=== PATIENT | female | born 1995 | race Caucasian/White ===

== ENCOUNTER → 2020-03-12 09:00 | Outpatient (BNVA) | payer BC, OTHER, MEDICAID, SELFPAY | PROVIDERS: Family Provider Family Medicine; PCP Nurse Practitioner; Visit Provider Nurse Practitioner Women's Health | DX: O99.331 Smoking (tobacco) complicating pregnancy, first trimester (principal); O36.80X0 Pregnancy with inconclusive fetal viability, not applicable or unspecified | CPT/HCPCS: 84315; 84702 ==

== ENCOUNTER → 2020-04-14 08:42 | Outpatient (BNVA) | payer OTHER, MEDICAID, SELFPAY | PROVIDERS: Family Provider Family Medicine; PCP Nurse Practitioner; Visit Provider Obstetrics & Gynecology | DX: O21.9 Vomiting of pregnancy, unspecified (principal); Z12.4 Encounter for screening for malignant neoplasm of cervix; Z3A.11 11 weeks gestation of pregnancy | CPT/HCPCS: 80307; 84315; 85025; 86592; 86762; 86803; 86850; 86900; 87086; 87340; 87806; 88175 ==

== ENCOUNTER → 2020-05-11 11:19 | Outpatient (BNVA) | payer OTHER, MEDICAID, SELFPAY | PROVIDERS: Family Provider Family Medicine; PCP Nurse Practitioner; Visit Provider Obstetrics & Gynecology | DX: Z34.01 Encounter for supervision of normal first pregnancy, first trimester (principal); R87.612 Low grade squamous intraepithelial lesion on cytologic smear of cervix (LGSIL) | CPT/HCPCS: 81000; 87491; 87591 ==

== ENCOUNTER 2020-07-01 20:08 | Outpatient (CLI) | payer OTHER, MEDICAID, SELFPAY ==
[2020-07-01 20:22] VITALS: BP 137/77; PULSE 116; TEMP 36.6
[2020-07-01 20:29] VITALS: BP 145/80; PULSE 133
[2020-07-01 20:30] VITALS: BP 143/72; PULSE 129
[2020-07-01 20:39] VITALS: BMI 26.2
[2020-07-01 20:45] VITALS: BP 124/71; PULSE 108
[2020-07-01 20:54] VITALS: RESP 16
== END 2020-07-01 20:54 | disposition home or self-care (01) ==
LOC: OPOB 20:09 → OBGYN 20:11
PROVIDERS: Family Provider Family Medicine; PCP Nurse Practitioner; Visit Provider Obstetrics & Gynecology
DX: O36.8190 Decreased fetal movements, unspecified trimester, not applicable or unspecified (principal); Z3A.00 Weeks of gestation of pregnancy not specified
CPT/HCPCS: 99211

== ENCOUNTER → 2020-08-12 15:56 | Outpatient (BNVA) | payer OTHER, MEDICAID, SELFPAY | PROVIDERS: Family Provider Family Medicine; PCP Nurse Practitioner; Visit Provider Obstetrics & Gynecology | DX: Z34.01 Encounter for supervision of normal first pregnancy, first trimester (principal); F12.90 Cannabis use, unspecified, uncomplicated | CPT/HCPCS: 81000; 82950; 85025 ==

== ENCOUNTER → 2020-08-17 10:22 | Outpatient (BNVA) | payer OTHER, MEDICAID, SELFPAY | PROVIDERS: Family Provider Family Medicine; PCP Nurse Practitioner; Visit Provider Obstetrics & Gynecology | DX: D64.9 Anemia, unspecified (principal) | CPT/HCPCS: 82728; 82746; 83021; 83540; 83550 ==

== ENCOUNTER → 2020-09-09 07:48 | Outpatient (BNVA) | payer OTHER, MEDICAID, SELFPAY | PROVIDERS: Family Provider Family Medicine; PCP Nurse Practitioner; Visit Provider Obstetrics & Gynecology | DX: Z34.80 Encounter for supervision of other normal pregnancy, unspecified trimester (principal) | CPT/HCPCS: 81000; 85027 ==

== ENCOUNTER 2020-10-06 01:29 | Inpatient (IN) | payer OTHER, MEDICAID, SELFPAY ==
[2020-10-06] VITALS (216 sets, daily range): BP systolic 91–161; BP diastolic 47–98; PULSE 71–169; RESP 16–18; TEMP 36.4–37.6; O2SAT 92–100; BMI 26.6
[2020-10-06] MEDS: lactated ringers 1,000 ML 999 ML IV ×2 (02:19→04:00)
[2020-10-06] MEDS: ampicillin 2,000 MG in sodium chloride 0.9% (plus) 50 ML 100 MG IV (02:20)
[2020-10-06 02:34] LABS: Basophils % 0.3 %; Eosinophils # 0.2 10^3/uL (0.0-0.8); Eosinophils % 1.9 %; Hematocrit 34.8 % (37.0-47.0); Hemoglobin 11.7 g/dL (11.5-15.3); Lymphocytes # 2.7 10^3/uL (0.8-4.8); Lymphocytes % 20.7 %; Mean Corpuscular HGB Conc 33.6 g/dL (30.0-36.0); Mean Corpuscular Hemoglobin 29.2 pg (28.0-34.0); Mean Corpuscular Volume 86.8 fl (81-99); Mean Platelet Volume 10.2 fL (7.4-10.4); Neutrophils # 8.74 10^3/uL (1.8-7.7); Neutrophils % 67.6 %; Nucleated Red Blood Cells % 0 %; Platelet Count 261 10^3/cmm (130-400); Red Blood Count 4.01 10^6/uL (4.1-5.3); Red Cell Distribution Width 13.2 % (12.1-15.1); White Blood Count 12.9 10^3/uL (4.0-10.0)
[2020-10-06 03:07] LABS: Amphetamines Screen Urine Negative (Negative); Barbiturates Screen Urine Negative (Negative); Benzodiazepines Screen Urine Negative (Negative); Cocaine Screen Urine Negative (Negative); Opiate Screen Urine Negative (Negative); PCP Screen Urine Negative (Negative); THC Screen Urine Positive (Negative)
--- NOTE | 2020-10-06 03:23 | P.ANESASSM_ITS ---
Pre-Anesthetic Assessment Pre-Anesthetic Assessment: Height/Weight: Height 1.57 m Weight 66.224 kg Temp Pulse Resp BP Pulse Ox 97.5 F L 83 18 118/82 99 10/06/20 02:27 10/06/20 03:07 10/06/20 01:48 10/06/20 03:07 10/06/20 01:44 Preop Diagnosis: labor pain Proposed Procedure: epidural Was Beta Laya taken within 24 hours: N/A Was Clonidine taken within 24 hours: N/A Social: Social History: Tobacco and No alcohol Exam: Pre-Anes Outpt Exam: alert, oriented x 3, clear to auscultation bilaterally and regular rate & rhythm Airway: Submandibular: WNL Cervical ROM: WNL MP: 2 Dentition: Full Pulmonary: Pulmonary: None reported CV/HEM: CV/HEM: Anemia : : None reported Hepatic: Hepatic: None reported GI: GI: GERD Metabolic: Metabolic: None reported Musc/skel: Musc/skel: None reported Neuropsych: Neuropsych: None reported Anesthetic Plan: ASA status: 2 Anesthesia: Regional (specify below) Risk of > 500 ml blood loss (7ml/kg in children): No Other Pertinent Information: Marijuana use Meds/Allergies Current Medications: Current Medications Generic Name Dose Route Start Last Admin Trade Name Freq PRN Reason Stop Dose Admin Lactated Ringer's 1,000 mls @ 999 m ls/hr 10/06/20 02:18 10/06/20 02:19 Lactated Ringers IV 999 mls/hr .Q1H1M PRN Administration See label comment s PFSH Anesthesia PFSH: Medical History Irregular menses No pertinent past medical history neghx: htn,dm,thyroid,dvt/pe,herpes ----denies partner with herpes PCP: [facility]-- Surgical History Hx of tonsillectomy (~03/2011) Family History Sister Ovarian cancer dx age 28 Grandmother Thyroid disease Paternal Denies family history of Colon cancer Diabetes Heart disease Hypercholesteremia Breast cancer Hypertension Uterine cancer Stroke Female Reproductive History: : 1 Data Anesthesia CBC & Chem 7: 10/06/20 02:00 Other Labs: Laboratory Results - last 48 hr 10/06/20 10/06/20 02:00 02:25 WBC 12.9 H RBC 4.01 L Hgb 11.7 Hct 34.8 L MCV 86.8 MCH 29.2 MCHC 33.6 RDW 13.2 Plt Count 261 MPV 10.2 Neut % (Auto) 67.6 Lymph % (Auto) 20.7 [place] % (Auto) 8.0 Eos % (Auto) 1.9 Baso % (Auto) 0.3 Neut # (Auto) 8.74 H Lymph # (Auto) 2.7 [place] # (Auto) 1.0 H Eos # (Auto) 0.2 Baso # (Auto) 0.0 Nucleated RBC % (auto) 0 Nucleated RBCs # 0.0 Urine Opiates Screen Negative Ur Barbiturates Screen Negative Ur Phencyclidine Scrn Negative Ur Amphetamines Screen Negative U Benzodiazepines Scrn Negative Urine Cocaine Screen Negative U Marijuana (THC) Screen Positive H Cardiac Studies: No Data to Display
--- NOTE | 2020-10-06 03:53 | ANES.PROC ---
Anesthesia Procedures Procedure/Date: 10/06/20 epidural Procedure Narrative: epidural complete, bolus given, epidural pump initiated with MEDICAL HOUSEKEEPER education given, vitals taken during procedure using OBIX system and satisfactory throughout, patient admits to decrease pain, report of procedure to OB RN Epidural: Time Out Performed: Yes Consents Signed: Procedure Consent Consent: requested by attending/covering physician, from patient, risks and benefits reviewed and patient agrees to proceed Lumbar Level: L3-L4 Epidural position: sitting Epidural procedure: sterile prep of area, 1% lidocaine to numb the area (3 mL), 18 g needle, negative for paresthesia passed, neg for paresthesia, test dose given, 1.5% xylocaine 1:200k epi (5 mL), 0.2% Ropivacaine bolus ml (5 mL), placed PCEA, no systemic response, sterile dressing applied, L.U.D. no apparent complications and 0.2% Ropiavacaine @ mls/hr (13 mL/hr)
--- NOTE | 2020-10-06 04:05 | PM.OPHPUD ---
Labor & Delivery H&P Update Date of Procedure: October 06, 2020 Date H&P Performed: 09/23/20 H&P update information: I have reviewed H&P completed within last 30 days, I have examined patient prior to procedure and Changes to prior documentation as noted here Changes to previous documentation: /2, grossly ruptured membranes Admission Diagnosis: iup at 36 3/7 PPROM Preop diagnosis: labor pain
[2020-10-06] MEDS: dextrose 5%-lactated ringers 1,000 ML 125 ML IV ×2 (06:00→14:02)
[2020-10-06] MEDS: ampicillin 1,000 MG in sodium chloride 0.9% (plus) 50 ML 100 MG IV ×4 (06:23→18:25)
[2020-10-06] MEDS: oxytocin 30 UNIT/500 ML BAG IV (08:45)
--- NOTE | 2020-10-06 20:47 | PM.DELIVERY ---
Delivery Note: Date of delivery: October 06, 2020 Pre-delivery diagnoses: Term Post-delivery diagnoses: Term delivered Procedure: Spontaneous vaginal delivery Op report anesthesia: Epidural and Nerve Block (Pudendal block) Delivering Physician: Home Real MD Estimated blood loss (mL): 300 Delivery: The patient was noted to be complete and pushing, so was placed in the dorsal lithotomy position, prepped and draped in the usual sterile fashion for a vaginal delivery. Pt. Noted to have epidural anesthesia. The patient delivered a viable term male infant weighing 3310 g with scores of 8 and 9 at one and five minutes, respectively. The vertex was delivered spontaneously over an intact perineum. The patient was asked to push and the head delivered spontaneously in the MARTY position, over an intact perineum. A nuchal cord was checked and none noted. The anterior shoulder delivered easily and the posterior shoulder followed. The remainder of the was easily delivered and the oropharynx and nasopharynx was bulb suctioned. The infant was noted to have spontaneous cry and spontaneous movement of all four extremities. The cord was clamped x 2 and cut and noted to have 2 arteries and one vein. The was passed to the mother's abdomen where nursing personnel were in attendance. Cord blood sample was then obtained. The placenta delivered intact spontaneously and the uterus was explored. 20 units of Pitocin was placed in the IV bag to firm the uterus. Examination of the cervix and vaginal vault did not reveal any lacerations. A vaginal pack was then placed. Examination of the perineum showed no lacerations. The vaginal pack was then removed. The patient tolerated this procedure well, and recovered in L&D with her infant in their LDR room. All sponge and needle counts were correct. Post-Delivery Status: Good and stable Coding Level of Care Code Acute Recreation Facility Attendant for Chg Elza
[2020-10-06] MEDS: lidocaine 2% INJ 20 mL INJECTION (22:48)
[2020-10-06] MEDS: ibuprofen 800 mg tablet PO (22:53)
[2020-10-07] VITALS (13 sets, daily range): BP systolic 99–129; BP diastolic 55–81; PULSE 8–90; RESP 16–18; TEMP 35.8–36.8; O2SAT 82–99
[2020-10-07] MEDS: docusate sodium 100 mg Capsule PO (08:31)
[2020-10-07] MEDS: ibuprofen 800 mg tablet PO ×3 (08:32→21:46)
[2020-10-07] MEDS: prenatal vitamin Capsule 1 CAP PO (08:32)
[2020-10-07 09:04] LABS: Hematocrit 32.9 % (37.0-47.0); Mean Corpuscular HGB Conc 33.4 g/dL (30.0-36.0); Mean Corpuscular Hemoglobin 29.7 pg (28.0-34.0); Mean Corpuscular Volume 88.9 fl (81-99); Platelet Count 252 10^3/cmm (130-400); Red Cell Distribution Width 13.4 % (12.1-15.1); White Blood Count 20.5 10^3/uL (4.0-10.0)
--- NOTE | 2020-10-07 14:38 | P.PN_ITS ---
Subjective Subjective: Interval history: Mrs. Del Angel S/P day 1 Vitals/I&O/Wt Last Vital Signs Temp 97.9 F 10/07/20 21:38 Pulse 81 10/08/20 16:25 Resp 16 10/08/20 16:25 BP 129/81 10/08/20 16:25 Pulse Ox 99 10/07/20 06:27 Physical Exam Narrative: EXAM NARRATIVE: GA; alert and oriented x 3 HEENT: normal Breasts: engorged Nipples - skin intact Lungs; clear to auscultation Heart: regular rhythm, no murmurs. Abd: Appropriately tender. BS+. Uterine fundus below umbilicus. No Fundal Ten derness. Perineum: normal lochia. Extremities: no edema, no cyanosis, no tenderness. Urinary Catheter Management^: Green Latex: Cath Placed During This Visit: yes, but has since been removed by the nurse Reason for Continuing Indwelling Catheter: Decision to DC Catheter Urinary Catheter Date of Insertion: 10/06/20 Urinary Catheter Time of Insertion: 04:12 Date Urinary Catheter Removed: 10/06/20 Time Urinary Catheter Discontinued: 15:31 Data : 10/07/20 08:09 A&P Assessment and plan (1) Status post vaginal delivery: Mrs. Simon is status post spontaneous vaginal delivery date 1. She is afebrile hemodynamically stable. Will discharge home 24 hours after delivery. Status: Acute Attestations Medical Necessity Statement*: Per my professional opinion per admitting diagnosis Coding Level of Care Code Acute Obgyn Nurse for Nikog Fwd Diagnoses Status post vaginal delivery
--- NOTE | 2020-10-07 19:32 | ANE.PACU2 ---
Inpatient post-anesthesia follow up: Airway intact: Yes Vital signs: Temperature 96.4 F Pulse Rate 78 Respiratory Rate 18 Blood Pressure 120/62 Pulse Oximetry 99 Oxygen Delivery Me thod Room Air Oxygen Flow Rate Fraction of Inspir ed Oxygen Hydration adequate: Yes Nausea and vomiting: No Pain level: 2 Mental status: Baseline
[2020-10-08 04:12] VITALS: BP 103/63; PULSE 81
[2020-10-08 09:07] VITALS: BP 130/90; PULSE 102
[2020-10-08] MEDS: prenatal vitamin Capsule 1 CAP PO (09:47)
[2020-10-08] MEDS: docusate sodium 100 mg Capsule PO (09:47)
[2020-10-08] MEDS: ibuprofen 800 mg tablet PO (09:47)
--- NOTE | 2020-10-08 10:42 | PC.NURSE ---
DSS worker assessed mom and , verbally notified this nurse that may discharge home with mother. DSS will do a home walk through next week.
--- NOTE | 2020-10-08 13:29 | PM.OBGYDC ---
Discharge Providers AIR EXPORT COORDINATOR Date of Admission: 10/06/20 01:29 Date of Discharge: 10/08/20 Attending Provider at Admission: Elizabeth Reynoso MD Attending Provider at Discharge: Elizabeth Reynoso MD Primary Care Provider: DALLAS Barnes Reason for Visit Reason for Visit: Possible PPROM Hospital Course Hospital Course Ms. Del Angel is a 25 year old G1 patient, with an EGA at 36 3/7 came to labor and delivery triage with premature rupture of membranes. She progressed to have a spontaneous vaginal delivery complicated with a 10-second shoulder dystocia. She delivered a male infant weighing 3310 g with scores of 8 and 9. recovery uneventful. Ambulating without difficulty. Urine output within normal limits. Normal lochia. She is afebrile and hemodynamically stable. Information Peripartum Data: Delivery Method: Vaginal Physical Exam Narrative: EXAM NARRATIVE: GA; alert and oriented x 3 HEENT: normal Breasts: engorged Nipples - skin intact Lungs; clear to auscultation Heart: regular rhythm, no murmurs. Abd: Appropriately tender. BS+. Uterine fundus below umbilicus. No Fundal Tenderness. Perineum: normal lochia. Extremities: no edema, no cyanosis, no tenderness. Urinary Catheter Management^: Green Latex: Cath Placed During This Visit: yes, but has since been removed by the nurse Reason for Continuing Indwelling Catheter: Decision to DC Catheter Urinary Catheter Date of Insertion: 10/06/20 Urinary Catheter Time of Insertion: 04:12 Date Urinary Catheter Removed: 10/06/20 Time Urinary Catheter Discontinued: 15:31 Discharge Data Vitals: Last Vital Signs Temp 97.9 F 10/07/20 21:38 Pulse 102 H 10/08/20 09:07 Resp 18 10/07/20 06:27 BP 130/90 10/08/20 09:07 Pulse Ox 99 10/07/20 06:27 Discharge Plan Discharge Patient Disposition: Home Condition: Stable Prescriptions: New ibuprofen 800 mg tablet 800 mg PO TID PRN (Reason: pain) Qty: 60 RF: 0 Colace 100 mg capsule 100 mg PO BID Qty: 30 RF: 0 acetaminophen 325 mg capsule 325 mg PO Q4H PRN (Reason: fever or pain) Qty: 60 RF: 0 Continued prenat.vits,nolan,[id number] Tablet 1 tab PO DAILY Qty: 30 RF: 12 ferrous sulfate 325 mg (65 mg iron) tablet 325 mg PO TID RF: 0 Discharge Orders: Discharge Order (Routine); Ordered 10/08/20 Ordered By: Home Real Referrals: Home Real MD [Physician] - 2 weeks Elizabeth Reynoso MD [Physician] - 10/21/20 10:30 am (Your 2 week post- appointment is scheduled for 10/21/20 @10:30. ) Discharge Diet: Usual diet Discharge Activity: Increase activity as tolerated Patient Instructions: Vitamins (By mouth), Depression (GEN), Pre-eclampsia and Eclampsia (DC), Bleeding (DC), OB Discharge Report, OB Food/Drug Interaction Guide, Opioid Safety, OB Home Care, OB Proud Parent Packet, OB Vaginal Deliveries - [facility] Activity Restrictions/Additional Instructions: 1. Please call [facility] on next working day to make your visit in 6 weeks. 2. Please stay home until you come back to the clinic on first post-operative check up. 3. Please follow instructions on your medications CAREFULLY. 4. If you have abdominal incision, do not cover it unless dressing is necessary because of drainage. OK to shower, but avoid bath. Leave steri-strips until they fall off. If they are still on one week after surgery, you may remove them. 5. If you had vaginal surgery or vaginal repair, Dr. Real may instruct you to take SITZ bath. 6. Yellow, blood tinged odorous vaginal discharge is usually normal after hysterectomy or vaginal surgeries. 7. No sexual intercourse, tampons, or douches until you are completely released from the post-operative care. 8. Avoid constipation by eating right and maybe using some Metamucil or Milk of Magnesia. 9. All prescription refills are given during the working hours. Please do no wait till it runs out. Call the clinic at [phone] before your medication runs out. The clinic will get in touch with your doctor to prescribe medications if necessary. 10. Please remain within 40 mile radius from our hospital because emergencies do happen now and then during the post-operative period. 11. If you have stairs at home, take one step at a time slowly and minimize the number of trips. It helps to stay in one floor for the next few days. No lifting except what you can lift by one hand until you are released from the post-operative care. 12. Driving is discouraged until you are well healed. It may be 3-4 weeks before you feel strong enough to drive. You should be able to turn and look through the rear window without pain and you should be able to push the brake pedal very hard without pain before you drive. No fast rules, but SAFETY should be your primary concern. DO NOT drive if you are on sedating medications such as narcotics. 13. Call the clinic (during working hours) to make urgent appointment or go to the Emergency room, if any of the following occurs: i. Vaginal bleeding becomes heavy, more than a period. ii. Incision becomes red and sore, or drains pus. iii. Your temperature is over 100.4 or you have chill. iv. IV site becomes red and swollen (a little ``knot?? is usually OK) v. Persistent nausea and vomiting vi. Persistent constipation or diarrhea vii. Rash or allergic reaction to medications. Discharge Attestations AIR EXPORT COORDINATOR Time Spent in Discharge Care*: greater than 30 min Coding Level of Care Code Acute Supervisor [employer] for Anni Bertrand
[2020-10-08 16:23] VITALS: BP 129/81; PULSE 81
[2020-10-08 16:25] VITALS: BP 129/81; PULSE 81; RESP 16
== END 2020-10-08 16:30 | disposition home or self-care (01) | DRG 806 ==
LOC: OBGYN 01:29
PROVIDERS: Obstetrics & Gynecology; Admitting Provider Obstetrics & Gynecology; PCP Nurse Practitioner; Visit Provider Obstetrics & Gynecology
DX: O60.14X0 Preterm labor third trimester with preterm delivery third trimester, not applicable or unspecified (principal); O99.324 Drug use complicating childbirth; Z37.0 Single live birth; F12.90 Cannabis use, unspecified, uncomplicated; O66.0 Obstructed labor due to shoulder dystocia; O99.02 Anemia complicating childbirth; D64.9 Anemia, unspecified; Z3A.36 36 weeks gestation of pregnancy
CPT/HCPCS: 36415; 51702; 59409; 80306; 83986; 85025; 85027; 99211; J0290; J2795

== ENCOUNTER → 2020-11-18 15:15 | Outpatient (BNVA) | payer OTHER, MEDICAID, SELFPAY | PROVIDERS: PCP Nurse Practitioner; Visit Provider Obstetrics & Gynecology | DX: Z39.2 Encounter for routine postpartum follow-up (principal) | CPT/HCPCS: 88175 ==

== ENCOUNTER → 2021-11-17 10:19 | Outpatient (BNVA) | payer MEDICAID, SELFPAY | PROVIDERS: PCP Nurse Practitioner; Visit Provider Obstetrics & Gynecology | DX: R87.620 Atypical squamous cells of undetermined significance on cytologic smear of vagina (ASC-US) (principal); R87.811 Vaginal high risk human papillomavirus (HPV) DNA test positive | CPT/HCPCS: 88175 ==

== ENCOUNTER 2022-09-20 13:17 | Emergency (ER) | payer MEDICAID, SELFPAY ==
[2022-09-20 13:23] VITALS: BP 149/93; PULSE 111; RESP 18; TEMP 36.4; O2SAT 99; BMI 26.9
--- NOTE | 2022-09-20 14:46 | W.ED.HA ---
HPI - Headache General: Chief Complaint: Headache Stated Complaint: stroke like syt Time Seen by Provider: 09/20/22 14:05 Source: patient and family Mode of arrival: ambulatory Limitations: no limitations History of Present Illness: Patient is a 27-year-old female with history of migraines who presents to the emergency department complaining of headache onset today at noon. Patient states she has a history of migraines and this feels similar. Normally, she is able to get rid of her migraines with ibuprofen and sleep, but this has only had minimal relief with her current migraine. She notes associated nausea and vomiting, stating that she has vomited too many times to count. She describes her current pain as throbbing. She denies any recent head injuries. Her migraines are normally worsened by light and sound. The pain is noted to be generalized, and she denies any acute visual changes or other concerning symptoms. No trauma/injury. No thunderclap presentation. She denies neck pain/stiffness, fevers, visual changes, or problems with gait/balance. She does report she is having difficulty thinking. MD elicited complaint: headache Pertinent past history: migraines Onset (ago): hour(s) Onset description: while at rest Location: generalized Severity: moderate Pain scale (0-10): 5 Quality & Timing: throbbing Exacerbating factors: light and noise Relieving factors: nothing Associated symptoms: Reports nausea and vomiting; Deny chest pain, confusion, fever(s), lightheadedness, malaise, rash or syncope Treatments prior to arrival: none Review of Systems Const: Denies: fever(s), chills, body aches, fatigue or malaise Eyes: Denies: change in vision or blurry vision Card: Denies: chest pain, palpitations, irregular heart rhythm, lightheadedness, syncope or dyspnea on exertion Resp: Denies: dyspnea, productive cough or pain on inspiration GI: Reports: nausea and vomiting; Denies: abdominal pain, heartburn or diarrhea : Denies: flank pain, difficulty voiding, dysuria, urinary frequency, urinary urgency or urinary hesitancy Musc: Denies: neck pain, back pain or joint pain Skin/Breast: Denies: rash Neuro: Reports: headache(s) and difficulty communicating thoughts; Denies: numbness in extremities, weakness in extremities, sensory changes, lack of coordination, difficulty walking, dizziness, vertigo, confusion, behavioral changes, Slurred speech present or seizure-like activity PFS ED PFSH: Medical History Irregular menses No pertinent past medical history neghx: htn,dm,thyroid,dvt/pe,herpes ----denies partner with herpes PCP: [facility]-- Surgical History Hx of tonsillectomy (~03/2011) Family History Sister Ovarian cancer dx age 28 Grandmother Thyroid disease Paternal Denies family history of Colon cancer Diabetes Heart disease Hypercholesteremia Breast cancer Hypertension Uterine cancer Stroke Social History Smoking and tobacco status: never smoked Substance/Drug Use: never Physical Exam Const: COMMON NORMALS: no acute distress, patient oriented x3, no limitations, alert and well nourished GENERAL APPEARANCE: cooperative ORIENTATION/CONSCIOUSNESS: Yes awake, Yes oriented to person, Yes oriented to place and Yes oriented to time OTHER: at end of my examination she began having some dry heaving/vomiting HENMT: COMMON NORMALS: normocephalic and atraumatic HEAD & SCALP: normal to inspection, normocephalic and atraumatic FACE & SINUS: normal facial exam and face symmetric Eye: COMMON NORMALS: Equal, round and reactive pupils present and EOMs intact bilaterally GENERAL EYE: appearance normal, both eyes and all related structures and normal light reflex PUPIL: Yes Equal, round and reactive pupils present DIRECT OPHTHALMOSCOPY: Yes normal light reflex Neck/C-Spine: COMMON NORMALS: full ROM, no lymphadenopathy, supple and no meningeal signs Resp: COMMON NORMALS: normal respiratory effort and clear to auscultation bilaterally AUSCULTATION: clear to auscultation bilaterally Cardio: COMMON NORMALS: regular rate and regular rhythm RATE: regular rate RHYTHM: regular rhythm Back/Pelvis: COMMON NORMALS: thoracic and lumbar spine normal to inspection, no thoracic nor lumbar tenderness and thoraco-lumbar ROM normal Extremity: COMMON NORMALS: normal to inspection GENERAL: Yes normal exam except as noted Neuro: WINSOME COMA SCALE: document GCS findings Winsome coma scale eye opening: Spontaneous Wins[place] coma scale verbal response: Orientated [place] coma scale motor response: Obey commands Winsome coma scale total score: 15 COMMON NORMALS: patient oriented x3, CN's II-XII intact bilaterally, moves all extremities, no focal motor deficits, no sensory deficits noted and gait normal SENSORIUM/ORIENTATION: Yes alert, Yes oriented to person, Yes oriented to place and Yes oriented to time MENINGEAL SIGNS: Yes no meningeal signs OTHER: No focal neurological deficit. Sensation to light touch intact bilaterally. 5/5 strength in all extremities. Pupils equally reactive responsive to light. Extraocular movements intact bilaterally. Alert and oriented x4. Skin: COMMON NORMALS: no rashes or lesions noted GENERAL SKIN EXAM: no rashes or lesions noted Course Vital Signs: Vital signs: Vital Signs Temperature 97.5 F L 09/20/22 13:23 Pulse Rate 111 H 09/20/22 13:23 Respiratory Rate 18 09/20/22 13:23 Blood Pressure 149/93 09/20/22 13:23 Pulse Oximetry 99 09/20/22 13:23 Oxygen Delivery Me thod Room Air 09/20/22 13:23 MDM - Headache Medical Decision Making Patient states she feels better after IV migraine cocktail and would like to go home at this time. Return to ED precautions given. Discharge Plan Discharge Patient Disposition: Home Clinical Impression: Migraine Condition: Stable Prescriptions: No Action ibuprofen 200 mg Tablet 200 mg PO Q6H PRN (Reason: Pain) Discharge Orders: Discharge ED (Routine); Ordered 09/20/22 Ordered By: Tiffanie Li Referrals: More [place] FNP [Primary Care Provider] - Patient Instructions: Headache - Migraine (Adult) Coding Level of Care Code ED Narcotics And/Or Vice Detective for Anni Bertrand
[2022-09-20] MEDS: sodium chloride 0.9% 1,000 ML 999 ML IV (14:58)
[2022-09-20] MEDS: ketorolac 60 mg/2 mL INJ 30 MG IVP (15:14)
[2022-09-20] MEDS: ondansetron 2 mg/ML SDV 2 mL 4 MG IVP (15:14)
[2022-09-20] MEDS: diphenhydrAMINE 50 mg/mL SDV 1mL IVP (15:14)
== END 2022-09-20 16:15 | disposition home or self-care (01) ==
PROVIDERS: Emergency Provider Physician Assistant; PCP Nurse Practitioner
DX: G43.909 Migraine, unspecified, not intractable, without status migrainosus (principal)
CPT/HCPCS: 96374; 96375; 99284; J1200; J1885; J2405; J7030

== ENCOUNTER → 2022-09-27 12:20 | Outpatient (BNVA) | payer MEDICAID, SELFPAY | PROVIDERS: PCP Nurse Practitioner; Visit Provider Psychiatry & Neurology Neurology | DX: G43.909 Migraine, unspecified, not intractable, without status migrainosus (principal); R41.0 Disorientation, unspecified; Z82.49 Family history of ischemic heart disease and other diseases of the circulatory system; G43.419 Hemiplegic migraine, intractable, without status migrainosus | CPT/HCPCS: 81241; 82306; 82607; 82746; 83735; 83921; 84155; 84165; 84439; 84443; 84481; 85210; 85303; 85306; 85613; 85730; 86146 ==

== ENCOUNTER 2022-10-31 06:50 | Outpatient (CLI) | payer MEDICAID, SELFPAY ==
--- NOTE | 2022-10-31 07:15 | MR_ITS ---
WS: [id number] MRA HEAD TECHNIQUE: Axial 3-D TOF images obtained with axial images and axial, sagittal, and coronal 2-D refor matted images. CLINICAL INFORMATION: G43.909 - Migraine, unspecified, not intractable, without... COMPARISON: None. FINDINGS: Distal vertebral arteries are patent. Basilar artery is patent. Normal vascularity to the PANEL SEWER territo ry bilaterally. Both ICAs are patent at the skull base. Normal vascularity to the MARISOL and MCA territories bilaterally . No evidence of proximal flow-limiting stenosis. Hypoplastic RIGHT A1 segment IMPRESSION: 1. No evidence of proximal flow-limiting stenosis or aneurysm. 2. Hypoplastic RIGHT A1 segment. 3. No other suspicious findings.
--- NOTE | 2022-10-31 07:30 | MR_ITS ---
WS: [id number] MRI HEAD WITH CONTRAST TECHNIQUE: Sagittal T1, T2 axial, T2 axial FLAIR, axial susceptibility weighted imaging, axial diffus ion weighted images, and coronal T2 images were obtained. Pre and post-T1 axial and post T1 coronal i mages. ADC and FSPGR images. CLINICAL INFORMATION: G43.909 - Migraine, unspecified, not intractable, without... COMPARISON: CT 2013 FINDINGS: No evidence of restricted diffusion to suggest acute ischemia. Ventricular system and basilar cistern s are patent. Normal vera-white differentiation. Normal posterior fossa. Normal vascular flow voids a t the skull base. No extra-axial fluid collections. No evidence of mass or mass effect. Paranasal sinuses and mastoid air cells well aerated. Normal posterior nasopharynx. Normal parapharyn geal fat. No hemosiderin on the susceptibility weighted images. Normal optic chiasm and pituitary inf undibulum. Temporal lobes and hippocampal formations are normal in appearance. Normal cerebellar tons ils. No abnormal intracranial enhancement. Normal dural venous sinuses. No other suspicious findings. IMPRESSION: 1. No evidence of restricted diffusion to suggest acute ischemia. 2. No suspicious intracranial signal abnormalities. 3. No abnormal gadolinium enhancement. 4. No hydrocephalus. 5. No hemosiderin on the susceptibility weighted images.
== END 2022-10-31 06:51 | disposition home or self-care (01) ==
LOC: RAD 06:51
PROVIDERS: PCP Nurse Practitioner; Visit Provider Specialist
DX: G43.909 Migraine, unspecified, not intractable, without status migrainosus (principal)
CPT/HCPCS: 70544; 70553; A9577

== ENCOUNTER → 2022-11-30 10:52 | Outpatient (BNVA) | payer MEDICAID, SELFPAY | PROVIDERS: PCP Nurse Practitioner; Referring Provider Psychiatry & Neurology Neurology; Visit Provider Internal Medicine Cardiovascular Disease | DX: Z82.49 Family history of ischemic heart disease and other diseases of the circulatory system (principal) | CPT/HCPCS: 93005 ==

== ENCOUNTER 2023-02-23 06:51 | Outpatient (CLI) | payer MEDICAID, SELFPAY ==
--- NOTE | 2023-02-23 | US_ITS ---
WS: [id number] EARLY OBSTETRICAL ULTRASOUND (<14 WEEKS). HISTORY: 1ST TRIMESTER COMPARISON: None available. Single intrauterine gestational sac is identified. Cardiac activity at 124 BPM. [place]-rump length laina sures 0.5 cm which corresponds to a gestation of 6w1d. Normal-appearing yolk sac and amnion demonstra jazmine. No subchorionic hemorrhage. Minimal free fluid. Enlarged RIGHT ovary with a corpus luteum cyst measuring 1.8 x 1.3 x 1.4 cm. Multiple peripheral smal l ovarian follicles. LEFT ovary is normal size with multiple small peripheral follicles also of simil ar size. IMPRESSION: 1. Single intrauterine gestation of 6 weeks 1 day with an EDC of 10/18/2023. 2. Normal cardiac activity for age. 3. Corpus luteal cyst RIGHT ovary.
== END 2023-02-23 06:52 | disposition home or self-care (01) ==
LOC: RAD 06:52
PROVIDERS: PCP Nurse Practitioner; Visit Provider Family Medicine
DX: Z34.01 Encounter for supervision of normal first pregnancy, first trimester (principal)
CPT/HCPCS: 76801; 76817

== ENCOUNTER 2023-05-29 13:55 | Outpatient (CLI) | payer MEDICAID, SELFPAY ==
--- NOTE | 2023-05-29 14:02 | US_ITS ---
WS: [id number] OBSTETRICAL ULTRASOUND COMPLETE HISTORY: ANATOMY SCAN COMPARISON: 02/23/2023 Single intrauterine gestation in transverse presentation. head on maternal LEFT. Cervix is closed. There is a lower uterine contraction. Contraction resolves at the end of the exam. No previa. Cervical length is 4.1 cm. Normal amount of amniotic fluid surrounds the fetus. Placenta: Anterior, no previa. Lower uterine contraction resolved by the end examination. Placenta gr sol 0 Heart: 152 BPM. Four chambers are identified. RVOT is normal. LVOT is not visualized. Anatomy: Intracranial structures and spine are normal. kidneys, stomach and urinary bladd er are unremarkable. Abdominal wall, three-vessel cord and cord insertion site are normal. 4 extremities are present. profile: Unremarkable. Gender: Female. measurements: BPD = 4.6 cm = 19w6d; HC = 17.4 cm = 19w6d; AC = 14.5 cm = 19w6d; FL = 3.2 cm = 19w6d; EFW: 315.7 g. 43.9 % Biometry is internally concordant. AGA by ultrasound: 19w6d SALINA by ultrasound: 10/17/2023 IMPRESSION: 1. Single intrauterine gestation of 19w6d with an SALINA of 10/17/2023. Appropriate growth since the pr ior ultrasound. 2. LVOT is not visualized. The remaining anatomy is normal.
== END 2023-05-29 13:56 | disposition home or self-care (01) ==
PROVIDERS: PCP Nurse Practitioner; Visit Provider Family Medicine
DX: Z34.82 Encounter for supervision of other normal pregnancy, second trimester (principal); Z3A.19 19 weeks gestation of pregnancy
CPT/HCPCS: 76805

== ENCOUNTER 2023-06-19 12:54 | Outpatient (CLI) | payer MEDICAID, SELFPAY ==
--- NOTE | 2023-06-19 12:56 | US_ITS ---
WS: [id number] ULTRASOUND OB FOCUSED HISTORY: Reevaluate heart. COMPARISON: 05/29/2023 Single intrauterine gestation in breech position. heart rate at 144 BPM. Normal four-chamber heart. Normal RVOT and LVOT identified[place] [id number] IMPRESSION: Normal reevaluation of the four-chamber heart and outflow tracts.
== END 2023-06-19 12:55 | disposition home or self-care (01) ==
LOC: RAD 12:54
PROVIDERS: PCP Nurse Practitioner; Visit Provider Family Medicine
DX: Z36.2 Encounter for other antenatal screening follow-up (principal)
CPT/HCPCS: 76816

== ENCOUNTER 2023-07-06 09:32 | Outpatient (CLI) | payer MEDICAID, SELFPAY ==
[2023-07-06 09:47] VITALS: BP 128/67; PULSE 100; TEMP 35.9
[2023-07-06 10:02] VITALS: BP 108/61; PULSE 93
[2023-07-06 10:17] VITALS: BP 110/65; PULSE 93
== END 2023-07-06 10:22 | disposition home or self-care (01) ==
LOC: OPOB 09:32 → OBGYN 09:33
PROVIDERS: PCP Nurse Practitioner; Visit Provider Family Medicine
DX: O26.899 Other specified pregnancy related conditions, unspecified trimester (principal); Z3A.00 Weeks of gestation of pregnancy not specified; R10.9 Unspecified abdominal pain; R07.9 Chest pain, unspecified
CPT/HCPCS: 99211

== ENCOUNTER 2023-08-03 16:01 | Outpatient (CLI) | payer MEDICAID, SELFPAY ==
[2023-08-03] VITALS (15 sets, daily range): BP systolic 100–143; BP diastolic 55–95; PULSE 77–108; TEMP 35.9; BMI 29.9
--- NOTE | 2023-08-03 16:23 | USR_ITS ---
PROCEDURE INFORMATION: Exam: US , Limited Exam date and time: 08/03/2023 4:49 PM Age: 28 years old Clinical indication: Lmp or gestational age (in weeks): 29; Antepartum complications; Bleeding; ; Additional info: Vaginal bleeding, placenta and cervical length LABS AND CLINICAL REPORTS: Gestational age (Established): 29 w 1 d Estimated due date (Established): 10/18/2023 TECHNIQUE: Imaging protocol: Real-time ultrasound of the maternal uterus with image documentation. Exam focused on the clinical indication. COMPARISON: [place] [id number] 06/19/2023 1:09 PM FINDINGS: Gestation: Single live intrauterine . Established gestational age 29 weeks 1 day. heart rate: 134 bpm. presentation and position: Breech Placenta: Anterior placenta, appears normal. MATERNAL: Cervix: Cervical length measures 4.4 cm. Appears closed. Other findings: Amniotic fluid volume appears within normal limits. US/US OB limited [id number] IMPRESSION: Single live intrauterine in the breech position with established gestational age 29 weeks 1 day. Placenta and cervix appear normal.
[2023-08-03 17:01] LABS: Basophils % 0.2 %; Eosinophils # 0.1 10^3/uL (0.0-0.8); Eosinophils % 0.6 %; Hematocrit 34.7 % (36-47); Lymphocytes # 2.5 10^3/uL (0.8-4.8); Mean Corpuscular HGB Conc 33.4 g/dL (30-55); Mean Corpuscular Hemoglobin 28.3 pg (27-33); Mean Corpuscular Volume 84.6 fl (85-98); Mean Platelet Volume 9.9 fL (7.4-10.4); Monocytes # 0.7 10^3/uL (0.2-0.9); Monocytes % 5.6 %; Neutrophils # 9.05 10^3/uL (1.8-7.7); Neutrophils % 73.1 %; Nucleated Red Blood Cells % 0 %; Platelet Count 243 10^3/cmm (157-399); White Blood Count 12.38 10^3/uL (3.29-11.43)
[2023-08-03 17:15] LABS: Alanine Aminotransferase 7 U/L (0-33); Albumin Level 3.4 g/dL (3.5-5.2); Alkaline Phosphatase 101 U/L (35-105); Blood Urea Nitrogen 5 mg/dL (6-20); Calcium 8.2 mg/dL (8.5-10.5); Carbon Dioxide 18 mmol/L (22-29); Chloride 105 mmol/L (98-107); Creatinine Clr Calc Pharmacy 268.3394; Globulin 2.6 g/dL (1.3-4.6); Glomerular Filtration Rate 268.9 mL/min (90-130); Glucose 87 mg/dL (65-115); Osmolality Calculated 279 mOsm/kg (285-295); Sodium 136 mmol/L (136-145); Total Bilirubin 0.2 mg/dL (0.15-1.2)
[2023-08-03 17:17] LABS: Anion Gap 16.9 (5-19); Aspartate Amino Transferase 15 U/L (0-32); Potassium 3.9 mmol/L (3.5-5.1)
[2023-08-03 17:19] LABS: Blood Urine 3+ (Negative); Glucose Urine UA Norm (Normal); Ketones Urine 1+ (Negative); Nitrate Urine Negative (Negative); Protein Urine 2+ (Negative); Urine Appearance Cloudy (CLEAR); Urine Color Red (Yellow); pH Urine 6.5 (5-7)
[2023-08-03 17:20] LABS: Add Urine Culture? Yes; Bacteria Urine TRACE /hpf; Bilirubin Urine Neg (Negative); Leukocyte Esterase Urine 1+ (Negative); RBC Urine >100 /hpf (0-2); Squamous Epithelial Cell Urine RARE /hpf (0-5); Urobilinogen Urine Norm (Negative); WBC Urine 0-4 /hpf (0-5)
--- NOTE | 2023-08-03 17:37 | USR_ITS ---
PROCEDURE INFORMATION: Exam: US Retroperitoneal; Complete; Kidneys and Bladder Exam date and time: 08/03/2023 7:15 PM Age: 28 years old Clinical indication: Other: Blood in urine; ; Additional info: Hematuria, back pain TECHNIQUE: Imaging protocol: Real-time ultrasound of the retroperitoneum with image documentation. Complete exam focused on the kidneys and bladder. COMPARISON: US OB limited [id number] 08/03/2023 4:49 PM FINDINGS: Right kidney: Right kidney measures 11 x 6.5 x 6.4 cm. Moderate hydronephrosis. No renal cyst or mass. No echogenic shadowing stone is seen within the kidney. Left kidney: Left kidney measures 11.5 x 5.5 x 5.4 cm. Moderate hydronephrosis. No renal cyst or mass. No echogenic shadowing stone is seen within the kidney. Urinary bladder: Not visualized. US/US renal BI* [id number] IMPRESSION: Bilateral hydronephrosis, right slightly greater than left, in this 29 week gestational age patient. No other significant abnormality.
--- NOTE | 2023-08-03 17:39 | P.TNLD_ITS ---
OB L&D Triage Visit Information: Date of evaluation: 08/03/23 Evaluation: Laboratory results: Laboratory Tests 08/03/23 16:48 WBC 12.38 H RBC 4.10 Hgb 11.60 Hct 34.7 L MCV 84.6 L MCH 28.3 MCHC 33.4 RDW 13.0 Plt Count 243 MPV 9.9 Neut % (Auto) 73.1 Lymph % (Auto) 20.0 [place] % (Auto) 5.6 Eos % (Auto) 0.6 Baso % (Auto) 0.2 Neut # (Auto) 9.05 H Lymph # (Auto) 2.5 [place] # (Auto) 0.7 Eos # (Auto) 0.1 Baso # (Auto) 0.0 Nucleated RBC % (a uto) 0 Nucleated RBCs # 0.0 Sodium 136 Potassium 3.9 Chloride 105 Carbon Dioxide 18 L Anion Gap 16.9 BUN 5 L Creatinine 0.3 L GFR Calculation 268.9 H Glucose 87 Calculated Osmolal ity 279 L Uric Acid 2.0 L Calcium 8.2 L Total Bilirubin 0.2 AST 15 ALT 7 Alkaline Phosphata se 101 Total Protein 6.0 L Albumin 3.4 L Globulin 2.6 Urine Color Red A Urine Appearance Cloudy A Urine pH 6.5 Ur Specific Gravit y 1.020 Urine Protein 2+ H Urine Glucose (UA) Norm Urine Ketones 1+ H Urine Blood 3+ H Urine Nitrate Negative Urine Bilirubin Neg Urine Urobilinogen Norm Ur Leukocyte Marcia ase 1+ H Urine RBC >100 H Urine WBC 0-4 H Ur Squamous Epith Cells Rare Amorphous Sediment Not Reportable Urine Bacteria Trace Vital signs: Vital Signs - 24 hr 08/03/23 16:14 08/03/23 16:29 08/03/23 17:10 Temperature 96.6 F L Pulse Rate 95 96 86 Blood Pressure 143/88 128/87 127/84 08/03/23 17:17 Temperature Pulse Rate 79 Blood Pressure 122/74 Coding Level of Care Code Acute Code for Chg Fwd
[2023-08-03 18:00] LABS: Urine Creatinine 84 mg/dL (28-217)
[2023-08-03 18:01] LABS: UPRO/UCREAT Ratio 0.33 mg/mg CR; Urine Protein Random 28 mg/dL
--- NOTE | 2023-08-03 19:39 | PC.NURSE ---
assistive technology trainer was at bedside during vitals taken at 1925.
--- NOTE | 2023-08-03 20:55 | PC.NURSE ---
This nurse called [facility] pharmacy at 2057 to order Augmentin 875mg twice a day for 7 days. left message.
== END 2023-08-03 20:47 | disposition home or self-care (01) ==
LOC: OPOB 16:01 → OBGYN 16:02
PROVIDERS: PCP Nurse Practitioner; Visit Provider Family Medicine
DX: O46.90 Antepartum hemorrhage, unspecified, unspecified trimester (principal); Z3A.00 Weeks of gestation of pregnancy not specified; R10.9 Unspecified abdominal pain
CPT/HCPCS: 36415; 59025; 76770; 76815; 80053; 81001; 82570; 84156; 84550; 85025; 87086; 99211

== ENCOUNTER 2023-08-05 10:41 | Outpatient (CLI) | payer MEDICAID, SELFPAY ==
[2023-08-05 11:33] LABS: Urine Total Protein 5.2 mg/dL (0-150)
[2023-08-05 11:38] LABS: Total Volume, Urine 2000 mL
== END 2023-08-05 10:42 | disposition home or self-care (01) ==
PROVIDERS: PCP Nurse Practitioner; Visit Provider Family Medicine
DX: Z01.89 Encounter for other specified special examinations (principal)
CPT/HCPCS: 84156

== ENCOUNTER 2023-09-17 15:37 | Outpatient (CLI) | payer MEDICAID, SELFPAY ==
--- NOTE | 2023-09-17 15:46 | USR_ITS ---
PROCEDURE INFORMATION: Exam: US , Limited Exam date and time: 09/17/2023 3:49 PM Age: 28 years old Clinical indication: Screening exam; Routine US, uterus; Additional info: Head position LABS AND CLINICAL REPORTS: Gestational age (Established): 35 w 4 d Estimated due date (Established): 10/18/2023 TECHNIQUE: Imaging protocol: Real-time ultrasound of the maternal uterus with image documentation. Exam focused on the clinical indication. COMPARISON: US OB limited [id number] 08/03/2023 4:49 PM FINDINGS: Gestation: Single live intrauterine gestation . Cephalic vertex presentation. Subjectively adequate amniotic fluid volume. heart rate: 173 bpm MATERNAL: Cervix: Cervical length measures 5.1 cm. US/US OB limited [id number] IMPRESSION: Live intrauterine gestation. Vertex presentation. Closed cervix.
== END 2023-09-17 15:38 | disposition home or self-care (01) ==
LOC: RAD 15:38
PROVIDERS: PCP Nurse Practitioner; Visit Provider Family Medicine
DX: Z34.83 Encounter for supervision of other normal pregnancy, third trimester (principal)
CPT/HCPCS: 76815

== ENCOUNTER 2023-10-11 11:08 | Inpatient (IN) | payer MEDICAID, SELFPAY ==
[2023-10-11] VITALS (24 sets, daily range): BP systolic 114–141; BP diastolic 60–82; PULSE 73–100; RESP 16; TEMP 36.3–36.7; O2SAT 98–99; BMI 32.1
--- NOTE | 2023-10-11 11:08 | USR_ITS ---
PROCEDURE INFORMATION: Exam: US , Limited Exam date and time: 10/11/2023 11:44 AM Age: 28 years old Clinical indication: Screening exam; Routine US, uterus; Additional info: History of shoulder dystocia, need growth scan prior to iol LABS AND CLINICAL REPORTS: Gestational age (Established): 39 w 0 d Estimated due date (Established): 10/18/2023 TECHNIQUE: Imaging protocol: Real-time ultrasound of the maternal uterus with image documentation. Exam focused on the clinical indication. COMPARISON: US OB limited [id number] 09/17/2023 3:49 PM FINDINGS: Gestation: Single live intrauterine gestation. heart rate: 145 bpm. Placenta: Anterior. Amniotic fluid index: RAYRAY is 10.05 cm. BIOMETRY: Gestational age (AUA): 39 weeks 1 day Estimated due date (AUA): 10/17/2023 Estimated weight: 3698.64 g. EFW by AC, BPD, FL, HC, [place] 1985, 73% Biparietal diameter (BPD): 9.56 cm. EGA (BPD) is 39 w 0 d. 81.4 % percentile Head circumference (HC): 34.19 cm. EGA (HC) is 39 w 3 d. 47.8 % percentile Abdominal circumference (AC): 35.19 cm. EGA (AC) is 39 w 1 d. 74.4 % percentile Femur length (FL): 7.66 cm. EGA (FL) is 39 w 1 d. 61.6 % percentile HC/AC: 0.97. (Normal range: 0.87 - 1.06) FL/HC: 22.4. (Normal range: 20.61 - 23.27) FL/BPD: 80.13. (Normal range: 71 - 87) FL/AC: 21.77. (Normal range: 20 - 24) MATERNAL: Cervix: Cervical length measures 4 cm. US/ OB limited [id number] IMPRESSION: Single live intrauterine gestation with estimated age of 39 weeks 1 day and weight of 3699 g.
--- NOTE | 2023-10-11 11:49 | P.HP_ITS ---
Providers/Chief Complaint 2 Admitting Physician: Janene Pat DO Primary TYPESETTER APPRENTICE: Janene Pat DO Primary Care Provider: DALLAS Barnes Chief Complaint: IOL HPI TYPESETTER APPRENTICE History of Present Illness Heather Del Angel is a 28 year old female at 39w 0d based on first trimester US not c/w sure LMP presenting for induction of labor with past medical history of migraines and asthma presenting for induction of labor. Denies contractions, LOF, vaginal bleeding. Good movement. Does report some period like cramps. Prior and delivery history significant for PROM with delivery and prolonged 2nd stage of labor. Patient has denied any history of shoulder dystocia however on review of prior documentation there is report in prior discharge summary of 10 second shoulder dystocia resolved by Thao although delivery summary states anterior shoulder delivered without difficulty. With this conflicting information- ultrasound has been ordered for EFW. Present Details : 2 Para: 1 Labs Blood type OB HPI: O (+) positive Rubella: Immune RPR: Negative GBS: Negative HBsAG: Negative Other Lab Information: HCV Ab negative HIV negative GC/Chlam negative Initial H/H 13.2/39.6 Pap smear NILM [id number] negative 1hr GTT passed- 118 3rd trimester H/H 11.9/35.4 Review of Systems 2 Const: Denies: fever(s) or chills Card: Denies: chest pain, palpitations, edema or swelling of feet/ankles : Denies: flank pain, difficulty voiding, dysuria or genital lesions Medications/Allergies Home Medications Medication Instructions Recorded Confirmed Last Taken Type cholecalciferol (vitamin D3) 1,250 50,000 unit PO .weekly #12 caps 09/28/22 08/03/23 Unknown Rx mcg (50,000 unit) capsule Allergies Allergy/AdvReac Type Severity Reaction Status Date / Time Sulfa (Sulfonamide Allergy rash Verified 12/20/22 09:48 Antibiotics) PFSH TYPESETTER APPRENTICE 2 PFSH: Medical History Irregular menses No pertinent past medical history neghx: htn,dm,thyroid,dvt/pe,herpes ----denies partner with herpes PCP: [facility]-- Surgical History Hx of tonsillectomy (~03/2011) Family History Sister Ovarian cancer dx age 28 Grandmother Thyroid disease Paternal Denies family history of Colon cancer Diabetes Heart disease Hypercholesteremia Breast cancer Hypertension Uterine cancer Stroke Social History Smoking and tobacco/nicotine status: never used tobacco/nicotine Substance/Drug Use: never History History History 2 2 Term 1 0 Miscarriages/Ectopic 0 Living Children 1 Vitals/I&O/Wt Last Vital Signs Temp 97.3 F L 10/11/23 11:16 Pulse 97 10/11/23 11:15 BP 122/82 10/11/23 11:15 Weight last 48 hrs Weight 176 lb Physical Exam 2 Const: COMMON NORMALS: no acute distress, healthy appearing and alert Resp: COMMON NORMALS: normal respiratory effort and clear to auscultation bilaterally Cardio: COMMON NORMALS: regular rate, regular rhythm, S1 normal heart sound present, S2 normal heart sound present and No murmurs present (Cardio) : OTHER: uterine fundus size=dates Extremity: NARRATIVE EXTREMITY EXAM: No LE edema Psych: COMMON NORMALS: normal affect and speech normal Data 10/11/23 12:55 Results Labs OB ([facility]): 2 Obstetrics US 10/11/23 Blood Type O Positive 10/11/23 Antibody Screen Negative 10/11/23 Hct 35.5 % (36-47) L 10/11/23 Hgb 11.70 g/dL (11.27-16.99) 10/11/23 Rho(D) Type Rh positive 10/11/23 Plt Count 246 10^3/cmm (157-399) 10/11/23 A&P Assessment and plan (1) Term : 28yo at 39w0d presenting for induction of labor. With questioned hx of shoulder dystocia- growth US was done with preliminary report EFW 3699g +/- 555g. Discussed these findings with patient. Also discussed risk of subsequent shoulder dystocia in this delivery and risks of shoulder dystocia including but not limited to hypoxia, , brachial plexus injuries, clavicular fracture. Discussed option for vs proceeding with elective induction. After extensive discussion of risks and benefits and informed consent, patient prefers trial of labor. Plan for routine CBC, blood typing. Cytotec dose with recheck in 4 hours. Intermittent EFM as long as Category I FHT. May have epidural when desired, fentanyl protocol prior to epidural. (2) Elective induction of labor planned: Attestations 2 Medical Necessity Statement*: Heather Del Angel's hospital stay will require greater than 2 midnights for labor and delivery and care. Coding Level of Care Code Acute Code for Chg Fwd Diagnoses Term Z34.90 Elective induction of labor planned
[2023-10-11 13:14] LABS: Basophils % 0.3 %; Eosinophils % 0.4 %; Hematocrit 35.5 % (36-47); Lymphocytes # 1.9 10^3/uL (0.8-4.8); Mean Corpuscular Hemoglobin 26.5 pg (27-33); Mean Corpuscular Volume 80.5 fl (85-98); Mean Platelet Volume 10.2 fL (7.4-10.4); Monocytes # 0.6 10^3/uL (0.2-0.9); Monocytes % 6.2 %; Neutrophils # 6.87 10^3/uL (1.8-7.7); Neutrophils % 72.4 %; Nucleated Red Blood Cells % 0 %; Platelet Count 246 10^3/cmm (157-399); Red Blood Count 4.41 10^6/uL (3.85-5.65)
[2023-10-11] MEDS: miSOPROStol 100 mcg tablet 25 MCG VAGINAL ×2 (13:25→17:43)
[2023-10-11] MEDS: lactated ringers 1,000 ML 999 ML IV (23:00)
--- NOTE | 2023-10-11 23:54 | P.ANESASSM_ITS ---
Pre-Anesthetic Assessment Height/Weight: Height 1.57 m Weight 79.832 kg Temp Pulse Resp BP O2 Del Method 98.1 F 80 16 141/60 Room Air 10/11/23 21:00 10/11/23 23:45 10/11/23 13:08 10/11/23 23:45 10/11/23 11:21 Preop Diagnosis: labor pains epidural Familial anesthetic complications: none Was Beta Laya taken within 24 hours: N/A Was Clonidine taken within 24 hours: N/A Social Tobacco marijuana Exam alert, oriented x 3, clear to auscultation bilaterally and regular rate & rhythm Airway Submandibular: within normal limits Cervical ROM: within normal limits Mallampati: Class II Dentition: full Pulmonary None reported CV/HEM Hypertension None reported Hepatic None reported GI Gastroesophageal Reflux Disease Metabolic None reported Musc/skel None reported Neuropsych None reported Anesthetic Plan ASA status: 2 Anesthesia: Regional (specify below) Risk of > 500 ml blood loss (7ml/kg in children): No Medications/Allergies Home Medications Medication Instructions Recorded Confirmed Last Taken Type cholecalciferol (vitamin D3) 1,250 50,000 unit PO .weekly #12 caps 09/28/22 08/03/23 Unknown Rx mcg (50,000 unit) capsule Allergies Allergy/AdvReac Type Severity Reaction Status Date / Time Sulfa (Sulfonamide Allergy rash Verified 12/20/22 09:48 Antibiotics) [facility] Anesthesia Medical History Irregular menses No pertinent past medical history neghx: htn,dm,thyroid,dvt/pe,herpes ----denies partner with herpes PCP: [facility]-- Surgical History Hx of tonsillectomy (~03/2011) Family History Sister Ovarian cancer dx age 28 Grandmother Thyroid disease Paternal Denies family history of Colon cancer Diabetes Heart disease Hypercholesteremia Breast cancer Hypertension Uterine cancer Stroke Social History Smoking and tobacco/nicotine status: never used tobacco/nicotine Substance/Drug Use: never Female Reproductive History : 2 Data Anesthesia 10/11/23 12:55 Short CBC 10/11/23 Range/Units 12:55 WBC 9.50 (3.29-11.43) 10^3/uL Hgb 11.70 (11.27-16.99) g/dL Hct 35.5 L (36-47) % MCV 80.5 L (85-98) fl Plt Count 246 (157-399) 10^3/cmm Neut % (Auto) 72.4 % Neut # (Auto) 6.87 (1.8-7.7) 10^3/uL Blood Bank 10/11/23 12:55 Blood Type O Positive Rho(D) Type Rh positive Antibody Screen Negative Cardiac Studies: 2 Holter Monitor 01/02/23
[2023-10-12] VITALS (73 sets, daily range): BP systolic 93–150; BP diastolic 50–91; PULSE 65–109; RESP 16–18; TEMP 36–37.1; O2SAT 97–100
[2023-10-12] MEDS: lactated ringers 1,000 ML 999 ML IV (00:01)
[2023-10-12] MEDS: ROPivacaine syringe 100 MG/50 ML SYRINGE 11 MG EPIDURAL ×3 (00:33→07:33)
--- NOTE | 2023-10-12 00:39 | ANES.PROC ---
Anesthesia Procedures Procedure/Date: 10/12/23 epidural Procedure Narrative: epidural complete after 2 attempts, bolus given, epidural pump initiated with EXTRUDER OPERATOR VERTICAL education given, vitals taken during procedure and satisfactory throughout, patient admits to decrease pain, report of procedure to OB RN Epidural: Time Out Performed: Yes Consents Signed: Procedure Consent Consent: requested by attending/covering physician, from patient, risks and benefits reviewed and patient agrees to proceed Lumbar Level: L3-L4 Epidural position: sitting Epidural procedure: sterile prep of area, 1% lidocaine to numb the area (4 mL), 18 g needle, negative for paresthesia passed, neg for paresthesia, test dose given, 1.5% xylocaine 1:200k epi (5 mL), 0.2% Ropivacaine bolus ml (5 mL), placed PCEA, no systemic response, sterile dressing applied, L.U.D. no apparent complications and 0.2% Ropiavacaine @ mls/hr (11 mL/hr)
[2023-10-12] MEDS: dextrose 5%-lactated ringers 1,000 ML 125 ML IV (01:07)
[2023-10-12] MEDS: ondansetron 2 mg/ML SDV 2 mL 4 MG IVP (01:10)
[2023-10-12] MEDS: oxytocin 30 UNIT/500 ML BAG IV (03:36)
--- NOTE | 2023-10-12 08:11 | PM.DELIVERY ---
Delivery Note: Date of delivery: October 12, 2023 Pre-delivery diagnoses: Term Elective induction of labor Post-delivery diagnoses: Term delivery of viable female Procedure: Spontaneous Vaginal Delivery Delivering Physician: Janene Pat DO Estimated blood loss (mL): 300 Pre-Delivery Course: She was admitted on 10/11/23 for induction of labor. Given 2 doses cytotec 4 hours apart and progressed from initial SVE of 1/25/-3 to 3/50/-3. At that time she was jong every 1.5-2 minutes and requested epidural. She received epidural and contractions spaced out and was started on low dose pitocin. She gradually progressed with SROM at 0643 with clear fluid and SVE of 5.5/75/-2. She then quickly progressed to complete and 0 station. Delivery: Patient progressed to complete. Patient placed in lithotomy position. Patient pushed with adequate effort. Head delivered in MARTY position, no nuchal cord was present. Shoulders and rest of body delivered without difficulty with adequate epidural anesthesia. Mouth and nares bulb suctioned. placed on maternal abdomen. Cord clamped and cut after 1 minute delay. Placenta spontaneously delivered and intact. Routine pitocin started. Fundus was noted to be firm with massage. The vagina and cervix were inspected and no lacerations were noted. Periurethral abrasions noted to be hemostatic. Fundus was again noted to be firm. Female born at 0753 with 8/9 weighing 7lb 7oz and measuring 21 in length Placenta noted to be intact with centrally inserted umbilical cord and 3 vessel cord Complications: Maternal none Infant none History History History 2 Term 1 1 Miscarriages/Ectopic 0 Living Children 2 A&P Assessment and plan (1) Spontaneous vaginal delivery: Coding Level of Care Code Acute Code for Chg Fwd Diagnoses Spontaneous vaginal delivery O80
[2023-10-12] MEDS: benzocaine-menthol 78 gm Canister 1 SPRAY TOPICAL (09:26)
[2023-10-12] MEDS: docusate sodium 100 mg Capsule PO ×2 (09:26→18:05)
[2023-10-12] MEDS: PRENATAL VIT NO.130/IRON/FOLIC 1 EACH TABLET PO (09:26)
[2023-10-12] MEDS: ibuprofen 800 mg tablet PO ×3 (09:26→21:07)
--- NOTE | 2023-10-12 09:59 | PC.NURSE ---
Pt up to bathroom without difficulty. Janessa care by pt. Pad and gown changed. Pt then remained up in room.
--- NOTE | 2023-10-12 12:02 | PC.NURSE ---
moved to OB7 for routine stay. oriented to room/call light. discussed proud parent pack and feeding log.
[2023-10-12] MEDS: acetaminophen 325 mg Tablet 650 MG PO (18:05)
[2023-10-12 21:12] LABS: Hematocrit 32.2 % (36-47); Mean Corpuscular Hemoglobin 26.2 pg (27-33); Mean Corpuscular Volume 81.9 fl (85-98); Mean Platelet Volume 10.6 fL (7.4-10.4); Platelet Count 225 10^3/cmm (157-399); Red Blood Count 3.93 10^6/uL (3.85-5.65); Red Cell Distribution Width 14.1 % (12.1-15.1); White Blood Count 12.45 10^3/uL (3.29-11.43)
[2023-10-13 03:00] VITALS: BP 101/62; PULSE 84; RESP 18; TEMP 36.7
--- NOTE | 2023-10-13 08:00 | ANE.PACU2 ---
Inpatient post-anesthesia follow up: Airway intact: Yes Vital signs: Temperature 98.3 F Pulse Rate 77 Respiratory Rate 18 Blood Pressure 122/86 Pulse Oximetry 98 Oxygen Delivery Me thod Room Air Oxygen Flow Rate Fraction of Inspir ed Oxygen Hydration adequate: Yes Nausea and vomiting: No Pain level: 1 Mental status: Baseline Epidural Start/End: Epidural Start Date: 10/11/23 Epidural Start Time: 00:02 Epidural End Date: 10/12/23 Epidural End Time: 09:55
--- NOTE | 2023-10-13 08:49 | PM.OBGYDC ---
Discharge Providers GEOLOGICAL TECHNICIAN Date of Admission: 10/11/23 11:08 Date of Discharge: 10/15/23 Attending Provider at Admission: Janene Pat DO Attending Provider at Discharge: Janene Pat DO Primary GEOLOGICAL TECHNICIAN: Janene Pat DO Diagnoses at Discharge Discharge Diagnosis (1) Spontaneous vaginal delivery: Status: Acute Reason for Visit Reason for Visit: IOL Hospital Course Hospital Course Pre-Delivery Course: She was admitted on 10/11/23 for induction of labor. Given 2 doses cytotec 4 hours apart and progressed from initial SVE of 1/25/-3 to 3/50/-3. At that time she was jong every 1.5-2 minutes and requested epidural. She received epidural and contractions spaced out and was started on low dose pitocin. She gradually progressed with SROM at 0643 with clear fluid and SVE of 5.5/75/-2. She then quickly progressed to complete and 0 station. Delivery: Patient progressed to complete. Patient placed in lithotomy position. Patient pushed with adequate effort. Head delivered in MARTY position, no nuchal cord was present. Shoulders and rest of body delivered without difficulty with adequate epidural anesthesia. Mouth and nares bulb suctioned. placed on maternal abdomen. Cord clamped and cut after 1 minute delay. Placenta spontaneously delivered and intact. Routine pitocin started. Fundus was noted to be firm with massage. The vagina and cervix were inspected and no lacerations were noted. Periurethral abrasions noted to be hemostatic. Fundus was again noted to be firm. Female born at 0753 with 8/9 weighing 7lb 7oz and measuring 21 in length Placenta noted to be intact with centrally inserted umbilical cord and 3 vessel cord Complications: Maternal none Infant none course: Patient underwent on 10/12/23. course was uncomplicated. Following delivery patient ambulated well, tolerated a normal diet without nausea or vomiting. Pain was well controlled on PO medications, is formula feeding, no leg/calf pain, no calf/leg swelling, normal urination, passing gas and normal bowel movements. Vaginal bleeding thin lochia and decreasing. labs significant for hemoglobin of 10.3 from 11.7 on admission. Follow-up planned for 2 and 6 weeks . Warning signs for endometritis, pre-eclampsia, DVT/PE, mastitis were reviewed, discussed additional warning signs including increased vaginal bleeding, worsening abdominal pain. Pelvic rest and activity precautions reviewed as well. She is discharged on 10/13/23 in stable condition. Information Peripartum Data: Delivery Method: Vaginal Physical Exam Const: COMMON NORMALS: no acute distress, healthy appearing and alert Resp: COMMON NORMALS: normal respiratory effort and clear to auscultation bilaterally AUSCULTATION: clear to auscultation bilaterally Cardio: COMMON NORMALS: regular rate, regular rhythm, S1 normal heart sound present, S2 normal heart sound present and No murmurs present (Cardio) RATE: regular rate RHYTHM: regular rhythm HEART SOUNDS: S1 normal heart sound present and S2 normal heart sound present : OTHER: uterine fundus firm and at the umbilicus Extremity: NARRATIVE EXTREMITY EXAM: No LE edema Neuro: SENSORIUM/ORIENTATION: Yes alert Psych: COMMON NORMALS: normal affect and speech normal SPEECH: Yes normal speech Urinary Catheter Management: Grene: Cath Placed During This Visit: yes, but has since been removed by the nurse Reason for Continuing Indwelling Catheter: Decision to DC Catheter Urinary Catheter Date of Insertion: 10/12/23 Urinary Catheter Time of Insertion: 00:55 Date Urinary Catheter Removed: 10/12/23 Time Urinary Catheter Discontinued: 07:49 History History History 2 Term 1 1 Miscarriages/Ectopic 0 Living Children 2 Discharge Data Studies Completed and Pending Completed Studies During Hospitalization Category Date Time Status US OB limited [id number] Urgent Ultrasound 10/11/23 11:08 Completed Radiology Impressions Obstetrics Ultrasound 10/11/23 11:08 IMPRESSION: Single live intrauterine gestation with estimated age of 39 weeks 1 day and weight of 3699 g. Laboratory Results WBC 12.45 10^3/uL (3.29-11.43) H 10/12/23 20:05 RBC 3.93 10^6/uL (3.85-5.65) 10/12/23 20:05 Hgb 10.30 g/dL (11.27-16.99) L 10/12/23 20:05 Hct 32.2 % (36-47) L 10/12/23 20:05 MCV 81.9 fl (85-98) L 10/12/23 20:05 MCH 26.2 pg (27-33) L 10/12/23 20:05 MCHC 32.0 g/dL (30-55) 10/12/23 20:05 RDW 14.1 % (12.1-15.1) 10/12/23 20:05 Plt Count 225 10^3/cmm (157-399) 10/12/23 20:05 MPV 10.6 fL (7.4-10.4) H 10/12/23 20:05 Neut % (Auto) 72.4 % 10/11/23 12:55 Lymph % (Auto) 20.0 % 10/11/23 12:55 [place] % (Auto) 6.2 % 10/11/23 12:55 Eos % (Auto) 0.4 % 10/11/23 12:55 Baso % (Auto) 0.3 % 10/11/23 12:55 Neut # (Auto) 6.87 10^3/uL (1.8-7.7) 10/11/23 12:55 Lymph # (Auto) 1.9 10^3/uL (0.8-4.8) 10/11/23 12:55 [place] # (Auto) 0.6 10^3/uL (0.2-0.9) 10/11/23 12:55 Eos # (Auto) 0.0 10^3/uL (0.0-0.8) 10/11/23 12:55 Baso # (Auto) 0.0 10^3/uL (0.0-0.1) 10/11/23 12:55 Nucleated RBC % (auto) 0 % 10/11/23 12:55 Nucleated RBCs # 0.0 /100WBC 10/11/23 12:55 Blood Type O Positive 10/11/23 12:55 Rho(D) Type Rh positive 10/11/23 12:55 Antibody Screen Negative 10/11/23 12:55 Vitals Last Vital Signs Temp 98.1 F 10/13/23 03:00 Pulse 84 10/13/23 03:00 Resp 18 10/13/23 03:00 BP 101/62 10/13/23 03:00 Pulse Ox 97 10/12/23 21:00 O2 Del Method Room Air 10/12/23 21:00 Results Labs OB ([facility]): Obstetrics US 10/11/23 Blood Type O Positive 10/11/23 Antibody Screen Negative 10/11/23 Hct 32.2 % (36-47) L 10/12/23 Hgb 10.30 g/dL (11.27-16.99) L 10/12/23 Rho(D) Type Rh positive 10/11/23 Plt Count 225 10^3/cmm (157-399) 10/12/23 Discharge Plan Discharge Patient Disposition: Home Condition: Stable Prescriptions: New ibuprofen 800 mg Tablet 800 mg PO TID Qty: 90 0RF docusate sodium 100 mg Capsule 100 mg PO BID Qty: 60 0RF Vitamin 27 mg iron- 800 mcg Tablet 1 tab PO DAILY Qty: 90 0RF Discontinued cholecalciferol (vitamin D3) 1,250 mcg (50,000 unit) capsule 50,000 unit PO .weekly Qty: 12 2RF Discharge Orders: Discharge Order (Routine); Ordered 10/13/23 Ordered By: Janene Pat Discharge Diet: Regular Discharge Activity: Increase activity as tolerated Patient Instructions: Depression (DC), Opioid Safety (DC), Preeclampsia and Eclampsia After Delivery (GEN), Hemorrhage (DC), OB Discharge Report, OB Food/Drug Interaction Guide, OB Care at Home, Opioid Safety, OB Vaginal Deliveries, Abnormal Bleeding Activity Restrictions/Additional Instructions: Pelvic rest for 6 weeks. Follow-up with Dr. Pat at 2 and 6 weeks . Discharge Attestations GEOLOGICAL TECHNICIAN Time Spent in Discharge Care*: less than 30 min Coding Level of Care Code Acute Code for Chg Fwd Diagnoses Spontaneous vaginal delivery O80
[2023-10-13] MEDS: docusate sodium 100 mg Capsule PO (09:21)
[2023-10-13] MEDS: ibuprofen 800 mg tablet PO (09:21)
[2023-10-13] MEDS: PRENATAL VIT NO.130/IRON/FOLIC 1 EACH TABLET PO (09:21)
[2023-10-13 10:15] VITALS: BP 122/86; PULSE 77; TEMP 36.8; O2SAT 98
== END 2023-10-13 10:20 | disposition home or self-care (01) | DRG 998 ==
LOC: OPOB 11:08 → OBGYN 11:08
PROVIDERS: Admitting Provider Family Medicine; Visit Provider Family Medicine
DX: O80 Encounter for full-term uncomplicated delivery (principal); Z3A.39 39 weeks gestation of pregnancy
CPT/HCPCS: 36415; 51702; 59025; 59409; 76815; 85025; 85027; 86850; 86900; 96374; J2405; J2590; J2795; J7120; J7121

== ENCOUNTER 2024-01-16 06:53 | Day surgery (SDC) | payer MEDICAID, SELFPAY ==
[2024-01-15 09:58] LABS: Basophils % 0.5 %; Eosinophils # 0.1 10^3/uL (0.0-0.8); Eosinophils % 1.5 %; Hematocrit 44.4 % (36-47); Lymphocytes # 2.5 10^3/uL (0.8-4.8); Lymphocytes % 41.7 %; Mean Corpuscular HGB Conc 32.4 g/dL (30-55); Mean Corpuscular Hemoglobin 26.3 pg (27-33); Mean Platelet Volume 9.1 fL (7.4-10.4); Monocytes # 0.4 10^3/uL (0.2-0.9); Monocytes % 7.1 %; Neutrophils % 48.9 %; Nucleated Red Blood Cells % 0 %; Platelet Count 300 10^3/cmm (157-399); Red Blood Count 5.48 10^6/uL (3.85-5.65); Red Cell Distribution Width 14.3 % (12.1-15.1); White Blood Count 5.93 10^3/uL (3.29-11.43)
[2024-01-15 10:14] LABS: Alanine Aminotransferase 20 U/L (0-33); Albumin Level 4.8 g/dL (3.5-5.2); Alkaline Phosphatase 109 U/L (35-105); Anion Gap 12.9 (5-19); Aspartate Amino Transferase 18 U/L (0-32); Blood Urea Nitrogen 8 mg/dL (6-20); Calcium 9.6 mg/dL (8.5-10.5); Carbon Dioxide 26 mmol/L (22-29); Chloride 102 mmol/L (98-107); Globulin 2.6 g/dL (1.3-4.6); Glomerular Filtration Rate 101.1 mL/min (90-130); Glucose 103 mg/dL (65-115); Osmolality Calculated 283 mOsm/kg (285-295); Potassium 3.9 mmol/L (3.5-5.1); Sodium 137 mmol/L (136-145); Total Bilirubin 0.4 mg/dL (0.15-1.2); Total Protein 7.4 g/dL (6.6-8.7)
--- NOTE | 2024-01-15 10:19 | P.ANESASSM_ITS ---
Pre-Anesthetic Assessment Height/Weight: Height 5 ft 2 in Preop Diagnosis: Request for sterilization Operation Date: 01/16/24 08:30 Proposed Procedures p Laparoscopic Salpingectomy 91450, Z30.2(Bilateral) - Home Real MD Was Beta Laya taken within 24 hours: N/A Was Clonidine taken within 24 hours: N/A Social Tobacco and No alcohol Exam alert, oriented x 3, clear to auscultation bilaterally and regular rate & rhythm Airway Submandibular: within normal limits Cervical ROM: within normal limits Mallampati: Class I Dentition: full Anesthetic Plan ASA status: 2 Anesthesia: General Other: Patient states that she had difficulty breathing after her tonsillectomy when she was in eighth grade NPO since midnight Current smoker, nicotine and marijuana Denies any cardiac issues Labs reviewed today and acceptable for procedure METs greater than 4 Plan for GETA Medications/Allergies Home Medications Medication Instructions Recorded Confirmed Last Taken Type rimegepant 75 mg disintegrating 75 mg PO DAILY 11/28/23 01/15/24 01/14/24 History tablet (Nurtec ODT) Allergies Allergy/AdvReac Type Severity Reaction Status Date / Time ethinyl estradiol Allergy Mild ALGY-Rash Verified 01/15/24 09:33 [From Xulane] norelgestromin [From Xulane] Allergy Mild ALGY-Rash Verified 01/15/24 09:33 Sulfa (Sulfonamide Allergy rash Verified 01/15/24 09:33 Antibiotics) [facility] Anesthesia Medical History Irregular menses No pertinent past medical history neghx: htn,dm,thyroid,dvt/pe,herpes ----denies partner with herpes PCP: [facility]-- Surgical History Hx of tonsillectomy (~03/2011) Family History Sister Ovarian cancer dx age 28 Grandmother Thyroid disease Paternal Denies family history of Colon cancer Diabetes Heart disease Hypercholesteremia Breast cancer Hypertension Uterine cancer Stroke Social History (Updated 11/28/23 @ 09:31 by Patrick Mojica) Smoking and tobacco/nicotine status: current every day tobacco/nicotine user Substance/Drug Use: never Data Anesthesia 01/15/24 09:45 01/15/24 09:45 Short CBC 01/15/24 Range/Units 09:45 WBC 5.93 (3.29-11.43) 10^3/uL Hgb 14.40 (11.27-16.99) g/dL Hct 44.4 (36-47) % MCV 81.0 L (85-98) fl Plt Count 300 (157-399) 10^3/cmm Neut % (Auto) 48.9 % Neut # (Auto) 2.90 (1.8-7.7) 10^3/uL BMP 01/15/24 09:45 Sodium 137 Potassium 3.9 Chloride 102 Carbon Dioxide 26 BUN 8 Creatinine 0.7 Glucose 103 Calcium 9.6 Liver Function 01/15/24 Range/Units 09:45 Total Bilirubin 0.4 (0.15-1.2) mg/dL AST 18 (0-32) U/L ALT 20 (0-33) U/L Alkaline Phosphatase 109 H (35-105) U/L Albumin 4.8 (3.5-5.2) g/dL Cardiac Studies: 2 Holter Monitor 01/02/23
[2024-01-16] VITALS (9 sets, daily range): BP systolic 108–124; BP diastolic 65–90; PULSE 67–90; RESP 14–16; TEMP 36.2–36.6; O2SAT 97–100; BMI 28.7
[2024-01-16 07:50] LABS: OR HCG Qualitative Urine Negative (Negative)
[2024-01-16] MEDS: scopolamine 1.5 Patch 1 PATCH TRANSDERMA (08:08)
[2024-01-16] MEDS: sodium chloride 0.9% 1,000 ML 30 ML IV (08:17)
--- NOTE | 2024-01-16 08:29 | W.PM.OPSUD ---
Surgery/Procedure H&P Update DATE OF PROCEDURE: January 16, 2024 DATE H&P PERFORMED: 12/28/23 H&P UPDATE INFORMATION: I have reviewed H&P completed within last 30 days, I have examined patient prior to procedure and No changes to prior documentation PREOP DIAGNOSIS: Desired sterilization PLANNED PROCEDURE: Operation Date: 01/16/24 08:30 Proposed Procedures p Laparoscopic Salpingectomy 61956, Z30.2(Bilateral) - Home Real MD
--- NOTE | 2024-01-16 08:34 | SUR.PREOP ---
08:20 500ml bolus infusing.
[2024-01-16] MEDS: ceFAZolin 2,000 mg SDV 2000 MG IVP (08:52)
[2024-01-16 09:15] LABS: Bilirubin Urine Negative (Negative); Blood Urine Negative (Negative); Glucose Urine UA Negative (Normal); Ketones Urine Negative (Negative); Leukocyte Esterase Urine Negative (Negative); Nitrate Urine Negative (Negative); Protein Urine Negative (Negative); Specific Gravity, Urine 1.028 (1.005-1.030); Urine Appearance Clear (CLEAR); Urine Color Yellow (Yellow); pH Urine 7.5 (5-7)
[2024-01-16 09:17] LABS: Add Urine Microscopic? YES; Bacteria Urine None Seen /hpf; Hyaline Casts Urine 2.05 /lpf; RBC Urine 0-2 /hpf (0-2); Squamous Epithelial Cell Urine 0-5 /hpf (0-5); WBC Urine 0-5 /hpf (0-5)
[2024-01-16] MEDS: BUPivacaine 0.5% INJ 10 mL INJECTION (09:35)
--- NOTE | 2024-01-16 09:59 | PM.OP ---
Operative Report Date of procedure: January 16, 2024 Pre-op diagnosis: Desire permanent sterilization Post-op diagnosis: same Procedure done: Laparoscopic bilateral salpingectomy Specimens removed/disposition: Left the right fallopian tubes Surgeon: Home Rael MD Estimated blood loss (mL): 5 IV fluids (mL): 1,200 Urine output (mL): 200 Procedure: After informed consent, the patient was taken to the operating room where general anesthesia was administered. She was placed in the dorsal lithotomy position and prepped and draped in sterile fashion. Pre-Procedure Time-Out verifying the correct patient identity, correct procedure verified with consent, correct site and side, correct patient position, availability of correct implants and any special equipment or requirements was performed and acknowledge by the OR team. The patient was examined under anesthesia and found to have a normal uterus with normal adnexa. A weighted speculum was placed in the vagina, and the anterior lip of cervix was grasped with the single toothed tenaculum. A uterine manipulator was advanced into the endocervical canal and uterus. The tenaculum was removed after uterine manipulator was secured. The speculum was removed from the vagina. An intraumbilical incision was made with a scalpel. While tenting up on the abdomen, a Verres needle was admitted into the intra-abdominal cavity. A saline drop test was performed and noted to be within normal limits. Pneumoperitoneum was attained with 4 liters of carbon dioxide. The Verres needle was removed. A 5 mm Opitc view trocar and sleeve were admitted into the abdomen and laparoscopic confirmation of location was achieved. A second incision was made 3 cm above the symphysis pubis, and a 5 mm trocar sleeves were admitted into the abdomen under direct laparoscopic visualization without complication. A survey revealed normal abdominal anatomy with the exception of string adhesion to the right lower anterior abdominal wall. A 5 mm blunt probe was advanced through the second trocar sleeve, and light manipulation of ovaries and uterus to assess the posterior aspects was performed. The pelvic survey shows normal uterus, left and right adnexa. The left ovary was noted with a follicular cyst. The string adhesion was fulgurated and transected with good hemostasis with the Ligasure. The patient was placed into Trendelenburg position. The fallopian tubes were inspected bilaterally and the fimbriated ends of the fallopian tubes were visualized bilaterally. Attention was then directed to the right side. The fallopian tube and mesosalpinx were grasped and the underlying mesosalpinx was cauterized and cut using the Ligasure device. Serial cauterization and cutting was used to separate the fallopian tube from the underlying mesosalpinx until it could be amputated cutting it approximated 2 cm from the cornua. Attention was then turned to the contralateral fallopian tube, which was removed in similar fashion. Both specimens were removed through the trocar and sent to pathology. The instruments were removed. The suprapubic trocar port was removed under direct visualization insuring good hemostasis. The carbon dioxide was allowed to escape from the abdomen. The intraumbilical trocar sleeve was withdrawn under visualization with laparoscope in the sleeve to insure hemostasis. The skin incisions were closed with 3-O Monocryl subcuticular stich and Dermabond. The instruments were removed from the vagina, and excellent hemostasis was noted. The patient tolerated the procedure well, and sponge, lap and needle count were correct times two. The patient was taken to the recovery room in good condition.
--- NOTE | 2024-01-16 15:48 | ANE.PACU2 ---
Inpatient post-anesthesia follow up: Airway intact: Yes Vital signs: Temperature 97.9 F Pulse Rate 69 Respiratory Rate 16 Blood Pressure 124/86 Pulse Oximetry 99 Oxygen Delivery Me thod Room Air Oxygen Flow Rate Fraction of Inspir ed Oxygen Hydration adequate: Yes Nausea and vomiting: No Pain level: 1 Mental status: Baseline
== END 2024-01-16 11:30 | disposition home or self-care (01) ==
PROVIDERS: Visit Provider Obstetrics & Gynecology
PROC: (CPT 58661; principal; 2024-01-16 08:20)
DX: Z30.2 Encounter for sterilization (principal); F17.200 Nicotine dependence, unspecified, uncomplicated
CPT/HCPCS: 58661; 80053; 81001; 81025; 85025; 86850; 86900; 88302; J0690; J1100; J1885; J2250; J2405; J2704; J3010; J3490; J7030